=== PATIENT | female | born 1995 | race Caucasian/White ===

== ENCOUNTER 2021-03-29 06:19 | Inpatient (IN) | payer BC, SELFPAY ==
[~2021-03-29] VITALS: Ht 170.2 cm; Wt 116.0 kg
[~2021-03-29 06:19] MED LIST: IBUP800 PO; OXYACE5T PO; Verotin-Gr Cap1 EACH PO
[2021-03-29 06:42] LABS: BASOPHILS ABSOLUTE AUTO 0.03 K/mm3 (0.00-0.23); BASOPHILS PERCENT AUTO 0 % (0-2); EOSINOPHILS ABSOLUTE AUTO 0.08 K/mm3 (0.00-0.68); EOSINOPHILS PERCENT AUTO 1 % (0-6); Hematocrit 37.2 % (33.0-51.0); Hemoglobin 12.2 g/dL (11.5-16.0); IMMATURE GRAN ABSOLUTE AUTO 0.04 K/mm3 (0.00-0.10); IMMATURE GRAN PERCENT AUTO 0 % (0-1); LYMPHOCYTES ABSOLUTE AUTO 2.33 K/mm3 (0.84-5.20); LYMPHOCYTES PERCENT AUTO 25 % (21-46); MONOCYTES ABSOLUTE AUTO 0.63 K/mm3 (0.16-1.47); MONOCYTES PERCENT AUTO 7 % (4-13); Mean Corpuscular HGB 25.8 pg (26.0-34.0); Mean Corpuscular HGB Conc 32.8 g/dL (31.5-36.5); Mean Corpuscular Volume 79 fL (80-100); Mean Platelet Volume 10.8 fL (9.1-12.4); NEUTROPHILS ABSOLUTE AUTO 6.06 K/mm3 (1.96-9.15); NEUTROPHILS PERCENT AUTO 66 % (41-73); Platelet Count 218 K/mm3 (150-400); RDW Coefficient Variation 14.9 % (11.7-14.2); RDW Standard Deviation 42.6 fL (35.1-46.3); Red Blood Cell Count 4.73 M/mm3 (3.80-5.20); White Blood Cell Count 9.17 K/mm3 (4.00-11.30)
[2021-03-29 09:19] LABS: PCO2 Cord - Arterial 53.7 mmHg (40-50); pH Cord - Arterial 7.28 (7.28-7.35)
[2021-03-29 09:21] LABS: pH Umbilical Cord - Venous 7.35 (7.26-7.35)
[2021-03-29 09:22] LABS: PCO2 Cord - Venous 43.5 mmHg (40-50); PO2 Cord - Venous 21.1 mmHg (28-32)
--- NOTE | 2021-03-29 09:24 | NUR ---
03/29/21 0924 Colin Anderson REPEAT SECTION, BABY GIRL BORN AT 0904 APGARS 9/9, CORD SEGMENT COLLECTED AND GIVEN TO Magdalena SUTHERLAND AND CORD BLOOD COLLECTED FOR NB BLOOD TYPING. BILATERAL SALPINGECTOMY PERFORM PER PT'S DESIRE FOR PERMANENT STERILIZATION
--- NOTE | 2021-03-29 12:55 | NUR ---
REPORT TO JAIDEN ERWIN
[2021-03-30 05:47] LABS: BASOPHILS ABSOLUTE AUTO 0.04 K/mm3 (0.00-0.23); BASOPHILS PERCENT AUTO 0 % (0-2); EOSINOPHILS ABSOLUTE AUTO 0.12 K/mm3 (0.00-0.68); EOSINOPHILS PERCENT AUTO 1 % (0-6); Hematocrit 34.6 % (33.0-51.0); Hemoglobin 11.4 g/dL (11.5-16.0); IMMATURE GRAN ABSOLUTE AUTO 0.04 K/mm3 (0.00-0.10); IMMATURE GRAN PERCENT AUTO 0 % (0-1); LYMPHOCYTES ABSOLUTE AUTO 1.54 K/mm3 (0.84-5.20); LYMPHOCYTES PERCENT AUTO 16 % (21-46); MONOCYTES ABSOLUTE AUTO 0.53 K/mm3 (0.16-1.47); MONOCYTES PERCENT AUTO 6 % (4-13); Mean Corpuscular HGB 26.3 pg (26.0-34.0); Mean Corpuscular HGB Conc 32.9 g/dL (31.5-36.5); Mean Corpuscular Volume 80 fL (80-100); Mean Platelet Volume 10.9 fL (9.1-12.4); NEUTROPHILS ABSOLUTE AUTO 7.28 K/mm3 (1.96-9.15); NEUTROPHILS PERCENT AUTO 76 % (41-73); Platelet Count 189 K/mm3 (150-400); RDW Standard Deviation 43.8 fL (35.1-46.3); Red Blood Cell Count 4.34 M/mm3 (3.80-5.20); White Blood Cell Count 9.55 K/mm3 (4.00-11.30)
[2021-03-31] MEDS ORDERED: Percocet 5-3251 EACH (09:35)
[2021-03-31] MEDS ORDERED: DOCU100 PO (09:35)
[2021-03-31] MEDS ORDERED: IBUP400 (09:37)
== END 2021-03-31 10:37 | disposition home or self-care (01) | DRG 785 ==
LOC: BC 06:19
PROVIDERS: ADMIT Obstetrics & Gynecology
PROC: 10D00Z1 Extraction of Products of Conception, Low, Open Approach (ICD-10-PCS; principal; 2021-03-29 08:30)
PROC: 0UB70ZZ Excision of Bilateral Fallopian Tubes, Open Approach (ICD-10-PCS; 2021-03-29 08:30)
PROC: 0UB00ZZ Excision of Right Ovary, Open Approach (ICD-10-PCS; 2021-03-29 08:30)
DX: O34.211 Maternal care for low transverse scar from previous cesarean delivery (principal); N83.201 Unspecified ovarian cyst, right side; Z30.2 Encounter for sterilization; Z3A.39 39 weeks gestation of pregnancy; Z37.0 Single live birth
CPT/HCPCS: 36415; 82803; 85025; 86850; 86900; 86901; 88302; 88305; 90707; A9270; J0690; J1885; J2250; J2370; J2405; J2590; J2704; J2765; J3010; J7120